=== PATIENT | female | born 1945 | race Asian ===

== ENCOUNTER → 2017-06-09 | Outpatient (CLI) | payer MEDICARE | END | disposition home or self-care (01) | LOC: PCVCCLINIC 12:00 | PROVIDERS: ATTEND Internal Medicine | DX: I35.1 Nonrheumatic aortic (valve) insufficiency (principal); E78.5 Hyperlipidemia, unspecified; E11.9 Type 2 diabetes mellitus without complications; M81.0 Age-related osteoporosis without current pathological fracture; Z79.82 Long term (current) use of aspirin | CPT/HCPCS: 80061; 93005; G0463 ==

== ENCOUNTER → 2018-06-15 | Outpatient (CLI) | payer MEDICARE | END | disposition home or self-care (01) | LOC: PCVCCLINIC 12:00 | PROVIDERS: ATTEND Internal Medicine | DX: I35.1 Nonrheumatic aortic (valve) insufficiency (principal); E11.9 Type 2 diabetes mellitus without complications; E78.5 Hyperlipidemia, unspecified; R42 Dizziness and giddiness; Z79.82 Long term (current) use of aspirin; Z79.899 Other long term (current) drug therapy; Z88.8 Allergy status to other drugs, medicaments and biological substances | CPT/HCPCS: 80061; 93005; G0463 ==

== ENCOUNTER → 2018-07-25 | Outpatient (CLI) | payer MEDICARE ==
--- NOTE | 2018-07-25 16:40 | PCVCIMAG ---
APPROVED REPORT Study performed: 07/25/2018 10:29:56 EXAM: Comprehensive 2D, Doppler, and color-flow Echocardiogram Patient Location: Echo lab Room #: 2Status: routine BSA: 1.11 HR: 71 bpmBP: 154/72 mmHg Rhythm: NSR Other Information Study Quality: Excellent Indications Aortic Valve Disease Diabetes Palpitations 2D Dimensions IVSd: 7.68 (7-11mm)LVOT Diam: 17.99 (18-24mm) LVDd: 36.80 mm PWd: 7.33 (7-11mm)Ascending Ao: 32.36 (22-36mm) LVDs: 21.44 (25-40mm) Left Atrium: 23.02 (27-40mm) Aortic Root: 23.98 mm LV Single Plane 4CH: 69.41 % LV Single Plane 2CH: 76.12 % Biplane EF: 74.6 % Volumes Left Atrial Volume (Systole) Single Plane 4CH: 23.15 mLSingle Plane 2CH: 26.16 mL Biplane LA Volume: 25.00 mLLA ESV Index: 22.00 mL/m2 Aortic Valve AoV Peak Jesus.: 1.39 m/s AO Peak Gr.: 7.79 mmHgLVOT Max P.79 mmHg LVOT Max V: 1.09 m/s JENARO Vmax: 1.98 cm2 AI Vmax: 4.28 m/s AI Bureau: 3.19 m/s2 AI PHT: 393.79 ms Mitral Valve E/A Ratio: 1.0 MV Decel. Time: 194.21 ms MV E Max Jesus.: 0.81 m/s MV A Jesus.: 0.82 m/s IVRT: 128.03 ms TDI E/Lateral E': 8.10E/Medial E': 7.36 Medial E' Jesus.: 0.11 m/s Lateral E' Jesus.: 0.10 m/s Pulmonary Valve PV Peak Jesus.: 0.72 m/sPV Peak Gr.: 2.05 mmHg Tricuspid Valve TR Peak Jesus.: 3.06 m/s TR Peak Gr.: 37.42 mmHg TV Vmax: 0.70 m/sPA Pressure: 44.00 mmHg Left Ventricle The left ventricle is normal size. There is normal LV segmental wall motion. There is normal left ventricular wall thickness. Left ventricular systolic function is normal. The left ventricular ejection fraction is within the normal range. LVEF is 65%. The left ventricular diastolic function is normal. Right Ventricle The right ventricle is normal size. The right ventricular systolic function is normal. Atria The left atrium size is normal. The right atrium size is normal. Aortic Valve Aortic valve is trileaflet. Moderate aortic regurgitation. There is no aortic valvular stenosis. Mitral Valve Mild mitral annular calcification There is trace mitral valve regurgitation noted. No evidence of mitral valve stenosis. Tricuspid Valve The tricuspid valve is normal in structure. Mild to moderate tricuspid regurgitation with a PA pressure of 44 mmHg. Pulmonic Valve The pulmonary valve is normal in structure. There is no pulmonic valvular regurgitation. Great Vessels The aortic root is normal in size. The ascending aorta is normal in size. Aortic arch is normal in caliber. IVC is normal in size and collapses >50% with inspiration. Pericardium There is no pericardial effusion. There is no pleural effusion. <Conclusion> Left ventricular systolic function is normal. There is normal LV segmental wall motion. EF 65%. Normal diastolic function Aortic valve is trileaflet. Moderate aortic regurgitation, no stenosis. Mild mitral annular calcification. Trace mitral valve regurgitation Mild to moderate tricuspid regurgitation; pulmonary artery pressure of 44 mmHg. There is no pericardial effusion.
== END | disposition home or self-care (01) ==
LOC: PCVCIMAG 12:36
PROVIDERS: ATTEND Internal Medicine
DX: I08.2 Rheumatic disorders of both aortic and tricuspid valves (principal); R00.2 Palpitations; E11.9 Type 2 diabetes mellitus without complications
CPT/HCPCS: 93306

== ENCOUNTER → 2019-06-19 | Outpatient (CLI) | payer MEDICARE | END | disposition home or self-care (01) | LOC: PCVCCLINIC 13:33 | PROVIDERS: ATTEND Internal Medicine | DX: I35.1 Nonrheumatic aortic (valve) insufficiency (principal); E11.9 Type 2 diabetes mellitus without complications; E78.5 Hyperlipidemia, unspecified; M81.0 Age-related osteoporosis without current pathological fracture; Z90.49 Acquired absence of other specified parts of digestive tract; Z88.8 Allergy status to other drugs, medicaments and biological substances; Z79.82 Long term (current) use of aspirin; Z79.899 Other long term (current) drug therapy | CPT/HCPCS: 36415; 80061; 93005; G0463 ==

== ENCOUNTER → 2019-06-22 | Outpatient (CLI) | payer MEDICARE ==
--- NOTE | 2019-06-22 12:49 | PCVCIMAG ---
APPROVED REPORT Study performed: 06/22/2019 10:39:42 EXAM: Comprehensive 2D, Doppler, and color-flow Echocardiogram Patient Location: Echo lab Status: routine BSA: 1.24 HR: 75 bpmBP: 142/74 mmHg Rhythm: NSR Other Information Study Quality: Adequate Risk Factors: Cardiac Risk Factors: DM Indications Syncope aortic insufficiency 2D Dimensions IVSd: 9.23 (7-11mm) LVDd: 35.57 mm PWd: 7.64 (7-11mm)Ascending Ao: 34.81 (22-36mm) LVDs: 26.31 (25-40mm) Left Atrium: 23.64 (27-40mm) Aortic Root: 30.71 mm LV Single Plane 4CH: 64.86 % LV Single Plane 2CH: 61.35 % Biplane EF: 61.9 % Volumes Left Atrial Volume (Systole) Single Plane 4CH: 29.91 mLSingle Plane 2CH: 27.24 mL LA ESV Index: 24.00 mL/m2 Aortic Valve AoV Peak Jesus.: 1.67 m/s AO Peak Gr.: 11.16 mmHgLVOT Max P.16 mmHg LVOT Max V: 1.24 m/s AI Vmax: 4.78 m/s AI [place]: 4.03 m/s2 AI PHT: 344.90 ms Mitral Valve E/A Ratio: 0.7 MV Decel. Time: 267.20 ms MV E Max Jesus.: 0.68 m/s MV A Jesus.: 1.00 m/s IVRT: 110.73 ms Pulmonary Valve PV Peak Jesus.: 0.88 m/sPV Peak Gr.: 3.07 mmHg Pulmonary Vein P Vein S: 0.35 m/sP Vein A: 0.61 m/s P Vein D: 0.49 m/sP Vein A Dur.: 121.1 msec P Vein S/D Ratio: 0.71 Tricuspid Valve TR Peak Jesus.: 2.97 m/s TR Peak Gr.: 35.29 mmHg Left Ventricle The left ventricle is normal size. There is normal LV segmental wall motion. There is normal left ventricular wall thickness. Left ventricular systolic function is normal. The left ventricular ejection fraction is within the normal range. LVEF is 60-65%. Mild diastolic dysfunction is present (impaired relaxation pattern). Right Ventricle The right ventricle is normal size. The right ventricular systolic function is normal. Atria The left atrium size is normal. The right atrium size is normal. Aortic Valve The aortic valve is minimally sclerotic. Moderate aortic regurgitation. There is no aortic valvular stenosis. Mitral Valve Mild mitral annular calcification Mild mitral regurgitation. No evidence of mitral valve stenosis. Tricuspid Valve The tricuspid valve is normal in structure. Mild to moderate tricuspid regurgitation with PAP of 40 mmHg. Pulmonic Valve The pulmonary valve is normal in structure. Mild pulmonic regurgitation. Great Vessels The aortic root is normal in size. IVC is normal in size and collapses >50% with inspiration. Pericardium There is no pericardial effusion. There is no pleural effusion. <Conclusion> Left ventricular systolic function is normal. There is normal LV segmental wall motion. LVEF is 60-65%. Mild diastolic dysfunction The aortic valve is minimally sclerotic, no stenosis. Moderate aortic regurgitation. Mild mitral annular calcification Mild mitral regurgitation. Mild to moderate tricuspid regurgitation with pulmonary artery pressure of 40 mmHg. There is no pericardial effusion.
== END | disposition home or self-care (01) ==
LOC: PCVCIMAG 10:23
PROVIDERS: ATTEND Internal Medicine
DX: I08.3 Combined rheumatic disorders of mitral, aortic and tricuspid valves (principal); R55 Syncope and collapse; E11.9 Type 2 diabetes mellitus without complications; E78.5 Hyperlipidemia, unspecified
CPT/HCPCS: 93306